=== PATIENT | male | born 1970 ===

== ENCOUNTER 2021-10-28 13:47 | Outpatient (REF) | payer OTHER, SELFPAY | END 2021-10-28 13:48 | disposition home or self-care (01) | LOC: HO.LAB 13:47 | PROVIDERS: Visit Provider Internal Medicine | DX: Z20.822 Contact with and (suspected) exposure to COVID-19 (principal) | CPT/HCPCS: C9803; U0003; U0005 ==

== ENCOUNTER 2021-11-24 13:13 | Outpatient (REF) | payer OTHER, SELFPAY ==
[2021-11-24 15:36] LABS: Binax Internal Control QC Valid; Binax Now Covid-19 Ag Negative (Negative)
== END 2021-11-24 13:14 | disposition home or self-care (01) ==
LOC: HO.LAB 13:13
PROVIDERS: Visit Provider Internal Medicine
DX: Z20.822 Contact with and (suspected) exposure to COVID-19 (principal)
CPT/HCPCS: 36415; C9803